=== PATIENT | female | born 1970 | race Caucasian/White ===

== ENCOUNTER → 2019-08-22 | Outpatient (CLI) | payer OTHER ==
[2019-08-22 11:50] LABS: BASO # 0.1 x10^3/uL (0.0-0.2); BASO % 1 % (0-3); EOS # 0.4 x10^3/uL (0.0-0.7); EOS % 3 % (0-3); HEMATOCRIT 47.2 % (36.0-47.0); HEMOGLOBIN 16.4 g/dL (12.0-15.5); LYMPH # 2.4 x10^3/uL (1.0-4.8); LYMPH % 22 % (24-48); MEAN CORPUSCULAR HEMOGLOBIN 31 pg (25-35); MEAN CORPUSCULAR HGB CONC 35 g/dL (31-37); MEAN CORPUSCULAR VOLUME 89 fL (79-100); MONO % 9 % (0-9); NEUT # 7.3 x10^3/uL (1.8-7.7); NEUT % 65 % (31-73); PLATELET COUNT 204 x10^3/uL (140-400); RED BLOOD COUNT 5.29 x10^6/uL (3.50-5.40); RED CELL DISTRIBUTION WIDTH 13.9 % (11.5-14.5); WHITE BLOOD COUNT 11.2 x10^3/uL (4.0-11.0)
== END | disposition home or self-care (01) ==
LOC: LAB 11:15
PROVIDERS: ATTEND Specialist
DX: H20.9 Unspecified iridocyclitis (principal)
CPT/HCPCS: 82164; 85025

== ENCOUNTER → 2020-05-04 | Outpatient (CLI) | payer OTHER ==
[~2020-05-04] MED LIST: GADOTERATE 7.5 MMOL/15ML VIAL. IVP ONE; OMEP40CA45 PO; SERT25TA PO
--- NOTE | 2020-05-04 17:03 | KCIC ---
EXAMINATION: Magnetic resonance imaging (MRI) of the brain and orbits without and with contrast 021 2:35 PM HISTORY: Retrobulbar neuritis. Complete vision loss in the left eye for years ago. TECHNIQUE: Multiplanar multi-weighted MRI of the brain and brainstem was performed without and with i ntravenous contrast using the brain and orbital protocol. Contrast information: 22 mL Gadolinium based contrast COMPARISON: None available. FINDINGS: Globes are spherical and contour. Optic nerves are normal in signal intensity without suspicious enha ncement or T2 signal hyperintensity. No intraconal or extraconal soft tissue mass is identified. Bila teral lens replacement noted. Optic nerve sheaths are intact. The scalp and calvarium are normal. The superior sagittal sinus demonstrates normal venous flow. The corpus callosum is normal in shape and signal intensity. The posterior fossa is unremarkable. The p ituitary and sella are normal. The brainstem and craniocervical junction are unremarkable. There is mild asymmetric FLAIR signal hyperintensity involving the head of the left hippocampus. There is no a symmetric volume loss. Diffusion weighted images reveal no hyperintensities to suggest acute cerebral infarction. The suscep tibility weighted sequences reveal no evidence of acute or chronic hemorrhage. The ventricles are nor mal in size and position without evidence of hydrocephalus. There are no areas of abnormal contrast enhancement. The paranasal sinuses are normal. The visualized portions of the mastoids are unremarkable. Normal flow voids are demonstrated in the carotid arteries and basilar artery. IMPRESSION: 1. No evidence for acute or subacute ischemia. 2. No suspicious orbital abnormality. 3. Mild asymmetric T2 such FLAIR signal hyperintensity involving the left hippocampus without volume loss or expansile lesion. Findings could be artifactual. 3 month follow-up MRI of the brain could be of benefit. Electronically signed by: Daja Zelaya MD (05/04/2020 5:01 PM) [id number]
== END ==
LOC: KCIC MRI 14:20
PROVIDERS: ATTEND Internal Medicine
DX: H46.11 Retrobulbar neuritis, right eye (principal)
CPT/HCPCS: 70543; 70553; A9575